=== PATIENT | female | born 1980 | race Caucasian/White ===

== ENCOUNTER 2024-07-29 05:55 | Day surgery (SDC) | payer MEDICAID, SELFPAY ==
--- NOTE | 2024-07-28 07:26 | EKG_ITS ---
[facility] Test Date: 2024-07-28 Pat Name: SAEID RIOS Department: Room: - Gender: Female Training And Development Officer: LINA : 1980 Requested By: Gokul Bright Order Number: [id number] Reading MD: Gokul Bright Measurements Intervals [place] Rate: 47 P: 53 MI: 174 QRS: 64 QRSD: 82 T: 51 QT: 416 QTc: 369 Interpretive Statements SINUS BRADYCARDIA No previous ECG available for comparison /store/S0/[id number]
[2024-07-28 07:37] VITALS: BMI 30.2
[2024-07-28 08:40] LABS: Basophils % (Auto) 1 % (0-2.5); Eosinophils # (Auto) 0.2 Thou/mm3 (0.0-0.5); Eosinophils % (Auto) 3 % (0-10); Hematocrit 36.1 % (36.0-46.0); Hemoglobin 12.4 g/dL (12.0-16.0); Immature Granulocytes % (Auto) 0 % (0-0); Immature Granulocytes Auto 0.02 Thou/mm3 (0.00-0.00); Lymphocytes # (Auto) 2.2 Thou/mm3 (1.0-4.8); Lymphocytes % (Auto) 37 % (10-50); Mean Corpuscular HGB Conc 34.3 g/dl (31.0-37.0); Mean Corpuscular Hemoglobin 28.6 pg (25.0-35.0); Mean Corpuscular Volume 83 fL (80-100); Monocytes # (Auto) 0.5 Thou/mm3 (0.0-0.8); Monocytes % (Auto) 9 % (0-12); Neutrophils % (Auto) 51 % (37-80); Nucleated Red Blood Cell % 0 /100 WBC (0); Platelet Count 207 Thou/mm3 (140-440); RDW Standard Deviation 37.7 fL (36.4-46.3); Red Blood Count 4.33 Miln/mm3 (4.00-5.20)
[2024-07-28 08:59] LABS: Partial Thromboplastin Time 24.6 Seconds (22.0-36.0); Prothrombin Time 10.6 Seconds (9.0-12.2)
[2024-07-28 09:28] LABS: Alanine Aminotransferase 22 U/L (10-49); Albumin, Serum 4.5 gm/dL (3.5-5.0); Albumin/Globulin Ratio 1.7 (1.2-2.2); Alkaline Phosphatase 56 U/L (46-116); Anion Gap 6 (7-16); Aspartate Amino Transferase 21 U/L (0-34); BUN/Creatinine Ratio 10 Ratio (12-20); Bilirubin,Total 0.3 mg/dL (0.3-1.2); Blood Urea Nitrogen 10 mg/dL (9-23); Calcium 9.5 mg/dL (8.3-10.6); Calcium (Corrected) 9.5 mg/dL (8.5-10.1); Carbon Dioxide 24.9 mMol/L (20.0-31.0); Chloride 107 mMol/L (98-107); Estimated Creatinine Clearance 76.1 mL/min (>60); Globulin 2.6 gm/dL (2.3-3.5); Glucose 108 mg/dL (74-106); Osmolality,Calculated 275 (275-295); Potassium 3.9 mMol/L (3.4-5.1); Sodium 138 mMol/L (136-145); Total Protein 7.1 gm/dL (5.7-8.2); eGFR > 60 See Note
--- NOTE | 2024-07-28 15:02 | SUR.PREOP ---
Pt notified to come in at 0600 tomorrow for surgery.
[2024-07-29] VITALS (8 sets, daily range): BP systolic 122–170; BP diastolic 69–103; PULSE 54–75; RESP 12–18; TEMP 36.1–36.8; O2SAT 94–98; BMI 29.5
--- NOTE | 2024-07-29 09:22 | SUR.PHASEI ---
0922: Pt. AAOx4, vitals stable, breathing unlabored, no complaint of pain or nausea, dressing to right shoulder CDI, no active bleed noted, pt. able to wiggle bilateral fingers, cap refill to bilateral fingers less than 3 seconds, report received from Julia MAST and Wa[employer] student RNA.
--- NOTE | 2024-07-29 09:25 | PD.SUROPNT ---
Date of Procedure 07/29/24 Pre Op Diagnosis 1. Right rotator cuff tear 2. Right shoulder impingement syndrome Post Op Diagnosis Same Procedure 1. Excision osteophyte lateral end of the clavicle 2 manipulation under anesthesia 3 repair of rotator cuff. 4 acromioplasty. Findings Refer dictation Procedure Description The patient was given general endotracheal anesthesia. Shoulder block was also given. Once satisfactory anesthesia was achieved patient was put in about 45?? sitting position with sandbag underneath the shoulder blade. The part was thoroughly prepped and draped. A skin incision was made at the AC joint extending proximally towards the neck for a half inches and distally towards the arm for about couple of inches. The incision was made over the previously placed scar. Deeper dissection was carried out. Bleeding vessels were electrocoagulated as and when encountered. The soft tissue was reflected. Following that lateral end of the clavicle was exposed. There was a lot of scar tissue and an inferior osteophytes were coming out from the lateral end of the clavicle. The deltoid muscle was reflected from the anterior and lateral aspect of the acromial process. Following that a periosteal elevator was placed underneath the lateral end of the clavicle and lateral 1 to 2 mm along with osteophyte was excised. On the anterior end of the acromial process on the lateral side there was osteophytes. Those osteophytes were removed with a saw and bone rongeur. Following that the rotator cuff was inspected. It revealed big oval tear, however most of the fibers were attached to the greater tuberosity. Wound was irrigated with antibiotic solution every 4-5 minutes. The left shoulder was manipulated at this time. The rotator cuff tear was repaired with 2-0 Vicryl. 2 drill holes were made on the acromial process and deltoid muscle was stitched back to it. Some reinforcement sutures were placed. The subcutaneous tissue was then closed with the help of 2-0 Vicryl and 3-0 Vicryl in layers. The skin was closed with ricki. After cleaning the wound with hydrogen proximal solution and sterile dressing was applied. Patient was taken to the recovery room in good condition. Estimated blood loss 20 mL. Prognosis in this case is fair. Due to significant eschar formation and rather poor quality of muscle patient may not have full range of motion and may continue having some degree of pain. Patient is fully aware of that Anesthesia GETA and other Pathology / specimen None Estimated Blood Loss 10 Surgeon Gokul Sanabria MD Surgical Staff Operation Date: 07/29/24 08:00 Case Staff Anesthesiologist: Gamal Hawthorne RN First Assistant: Izabela Willis
[2024-07-29] MEDS: fentaNYL CIT INJ 50 mCg/ML AMP 2ML 25 MCG IV ×2 (09:38→10:00)
[2024-07-29] MEDS: MORPHINE SULF INJ 10 MG/ML VIAL 3 MG IV ×2 (09:46→09:54)
--- NOTE | 2024-07-29 10:22 | SUR.PHASEII ---
1022: Pt. AAOx4, vitals stable, breathing unlabored, complaint of pain (pt. states it's tolerable, but still painful), gave plenty of pain medication that I could safely, advised pt. to take pain medication as soon as she gets home, wait an hour and half to two hours and if the pain pill doesn't help to call MD for stronger medications, Pt. verbalized understanding. Pt. tolerated sips of water well, dressing to right shoulder CDI, pt. able to wiggle bilateral fingers, cap refill to bilateral fingers lass than 3 seconds, bilateral radial pulses strong and regular. Gave discharge instructions to the pt. and her ride, both verbalized understanding and had no further questions. Pt. left with all personal belongings.
--- NOTE | 2024-07-29 10:25 | ESHP_ITS ---
RE: STEPHEN RIOS : 1980 DATE OF ADMISSION: 07/29/2024 The patient came to my office on 07/28/2024 for detailed preoperative history and physical examination. HISTORY OF PRESENTING COMPLAINT: The patient presented to me with history of pain in the right shoulder. Range of motion is severely restricted. The patient actually underwent David procedure along with her rotator cuff repair on 03/07/2022. The patient has stated that she was lifting 50 pounds of weight and she felt a snap in the right shoulder. Since that the patient started having this problem. As per the patient, she lifted weight in March of 2023 almost 1 year after the previous surgery. Intensity of pain is graded 8-9/10. The patient is unable to do household work. MRI scan confirmed torn rotator cuff. PAST MEDICAL HISTORY: The patient has history of high blood pressure. No history of diabetes mellitus, asthma, seizure, chest pain, myocardial infarction, or bleeding disorder. PAST SURGICAL HISTORY: Includes right rotator cuff surgery. DRUG HISTORY: The patient is on; 1. Propranolol. 2. Pregabalin. 3. Mirtazapine. 4. Hydroxyzine. 5. Gabapentin. 6. Hydrocodone. ALLERGIES: NIL KNOWN. FAMILY HISTORY AND SOCIAL HISTORY: Noncontributory in this case, though the patient used to take some street drugs in the past, but she quit a few years back. PHYSICAL EXAMINATION: VITAL SIGNS: Pulse 88 per minute, blood pressure 138/76. NECK: Soft, supple. No mass felt. Trachea is centrally placed. CARDIOVASCULAR: First and second heart sounds normal. No murmur heard. LUNGS: Bilateral vesicular breath sounds. CHEST: Clear. ABDOMEN: Soft, supple. No mass felt. Bowel sounds present. EXTREMITIES: Right shoulder examination, very well-healed scar. The scar size is about 3 inches. There is tenderness at remnant of the AC joint. Active range of motion 0-80 degrees of abduction and 0-70 degrees of forward flexion. Internal rotation is restricted. Detailed discussion took place. LABORATORY STUDIES: The patient MRI scan revealed torn rotator cuff, which was complete tear. There is some inflammation was present as well. ASSESSMENT AND PLAN: I explained that I can go ahead and re-repair the muscle, but with the quality of the muscle seems to be a rather poor. Besides that there may be scar formation at the lateral end of the clavicle, which I may have to be removed. Detailed discussion took place. With the help of shoulder model and shoulder reversal print inspector, it was explained. Risk with anesthesia was explained and that includes, but not limited to reaction to anesthetic agents, cardiac arrest and rarely it might be fatal. Risk with operation includes infection, and if that happens, the patient may need further surgical procedure. Other risks include delayed healing, wound dehiscence, etc. No guarantee is given regarding outcome of the procedure and/or relief of symptoms. Indeed due to poor quality of muscle, there is a possibility that the patient may not again have very good range of motion. Surgery is booked for 07/29/2024. Appropriate lab work done. DT: 09:35:52 TT: 10:23:00 Ref: [id number] - TID: [id number]
== END 2024-07-29 10:22 | disposition home or self-care (01) ==
PROVIDERS: Anesthesiology; PCP Physician Assistant; Referring Provider Orthopaedic Surgery; Visit Provider Orthopaedic Surgery
PROC: (CPT 23412; principal; 2024-07-29 08:00)
DX: M75.101 Unspecified rotator cuff tear or rupture of right shoulder, not specified as traumatic (principal); M75.41 Impingement syndrome of right shoulder; Z01.810 Encounter for preprocedural cardiovascular examination
CPT/HCPCS: 23412; 36415; 80053; 85025; 85610; 85730; 93005; A4649; J0131; J0690; J2250; J2270; J2371; J2704; J2795; J3010; J3490

== ENCOUNTER → 2024-09-05 | Outpatient (CLI) | payer MEDICAID, SELFPAY ==
--- NOTE | 2024-09-05 08:00 | XR_ITS ---
Examination: Screening digital mammography, bilateral Computer aided detection 3-D breast Tomosynthesis, bilateral Date and time of exam: September 05, 2024 0748 hours Compared to mammograms dating to July 23, 2021 Indication: Screening Technique: Nonmagnified MLO, CC views of the breasts to been obtained, reconstructed from 3-D Tomosynthesis images. R2 computer aided detection program utilized for evaluation of suspicious masses and/or abnormal calcifications. 3-D Tomosynthesis images obtained. Findings: Scattered areas of fibroglandular density. Skin lesions right breast Benign calcifications. No interval suspicious masses Impression: BI-RADS category II: Benign Findings. Recommend 1 year follow-up mammogram.
== END | disposition home or self-care (01) ==
LOC: CDIM 07:36
PROVIDERS: PCP Physician Assistant; Referring Provider Nurse Practitioner Family; Visit Provider Nurse Practitioner Family
DX: Z12.31 Encounter for screening mammogram for malignant neoplasm of breast (principal); R92.323 Mammographic fibroglandular density, bilateral breasts; R92.1 Mammographic calcification found on diagnostic imaging of breast
CPT/HCPCS: 77063; 77067

== ENCOUNTER 2024-09-06 10:09 | Outpatient (RCR) | payer MEDICAID, SELFPAY ==
--- NOTE | 2024-09-06 10:48 | PT.OIERPT ---
PT OP Initial Eval Patient Information Outpatient Physical Therapy Treatment Date: 09/06/24 Visit Reasons: Rotator cuff repair Medical Diagnosis: Right Rotator Cuff Tear Treatment Dx #1: Right Shoulder Mobility Deficits Treatment Dx #2: Right Shoulder Pain Start of Care: 09/06/24 Date of Onset: 07/29/24 Smoking Status Smoking Status: Never smoker Initial Assessment Subjective: Pt is a 44 y/o female s/p right rotator cuff repair 07/29/24. Pt mentioned same tendon was repair ~ 2 years ago. 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 Pt has limitation with self care, cooking, cleaning, work duties, lifting, and performing recreational activities. Objective: Right Shoulder PROM Flexion: 150 deg Abduction: 160 deg External Rotation: 45 deg Internal Rotation: unable due to pain Right Shoulder AROM Flexion: 30 deg Abduction: 45 deg ER and IR: unable Right Shoulder MMTs: grossly 3-/5 Right Scapula MMTs: grossly 3-/5 Assessment: Pt demonstrate right shoulder pain and mobility deficits s/p rotator cuff repair leading to difficulty with ADLs. Pt will benefit from physical theapy to increase ROM, strength, and work on stability. Short Term and Charge Manager Goals 1) Increase right shoulder PROM WFL in 12 wks to prevent frozen shoulder 2) Increase right shoulder MMTs grossly 4/5 in 12 wks to be able to perform lifting activities 3) Increase right scapula MMTs grossly to 4-/5 in 12 wks to be able to perform chores 4) Decrease shoulder pain to 2/10 in 12 wks to be able to perform recreational activities 5) Indep with HEP Treatment Plan 1) Manual Therapy 2) Therapeutic Activities 3) Therapeutic Exercises 4) Modalities (ice, heat) Frequency and Duration: 2 x wk for 12 wks Certification Dates: 09/06/24 to 12/05/24 Procedure Charges OP PT Eval Mod Complex 30 minutes: Yes
== END 2024-09-06 23:59 | disposition home or self-care (01) ==
LOC: CPTX 10:09
PROVIDERS: PCP Orthopaedic Surgery; Referring Provider Orthopaedic Surgery; Visit Provider Orthopaedic Surgery
DX: M25.511 Pain in right shoulder (principal); Z98.890 Other specified postprocedural states
CPT/HCPCS: 97162

== ENCOUNTER 2024-10-07 11:00 | Outpatient (RCR) | payer MEDICAID, SELFPAY ==
--- NOTE | 2024-09-12 08:52 | PT.ODAYNRPT ---
PT Outpatient Daily Note OP Daily Note Outpatient Physical Therapy Treatment Date: 09/12/24 Visit Reasons: Rotator cuff repair Subjective: Pt's shoulder is sore and aches. Objective: Please see flow chart for list of ther ex performed Assessment: encouraged to complete reps today due to pain. Post ice helped with pain and soreness Plan: Continue with PT Length of Time (minutes) of Treatment: 30 Minutes Procedure Charges Therapeutic Exercise 30 minutes: Yes
--- NOTE | 2024-09-15 09:08 | PT.ODAYNRPT ---
PT Outpatient Daily Note OP Daily Note Outpatient Physical Therapy Treatment Date: 09/15/24 Visit Reasons: Rotator cuff repair Subjective: Pt reports shoulder is doing ok, no other complaints or concerns to report. Objective: Please see flow sheet for ther ex list. Assessment: Pt instructed on AAROM exercises, pt encouraged to perform within pain free range. Plan: Continue with POC. Length of Time (minutes) of Treatment: 30 Minutes Procedure Charges Therapeutic Exercise 30 minutes: Yes
--- NOTE | 2024-09-19 09:59 | PT.ODAYNRPT ---
PT Outpatient Daily Note OP Daily Note Outpatient Physical Therapy Treatment Date: 09/19/24 Visit Reasons: Rotator cuff repair Subjective: Pt continues to have limitation with moving arm past shoulder height Objective: Please see flow chart for list of ther ex performed Assessment: patient exhibit post capsule tightness leading to slow progress with shoulder AROM. Pt instructed on post capsule stretch and to resume at home. Plan: Continue with PT Length of Time (minutes) of Treatment: 30 Minutes Procedure Charges Therapeutic Exercise 30 minutes: Yes
--- NOTE | 2024-09-23 13:27 | PT.ODAYNRPT ---
PT Outpatient Daily Note OP Daily Note Outpatient Physical Therapy Treatment Date: 09/23/24 Visit Reasons: Rotator cuff repair Subjective: Pt's shoulder feels about the same. Notice a little improvement. Objective: Please see flow chart for list of ther ex performed Assessment: small improvement with shoulder flexion and scaption AAROM noted. Cues to decrease upper trape recruitment with shoulder exercises Plan: Continue with PT Length of Time (minutes) of Treatment: 30 Minutes Procedure Charges Therapeutic Exercise 30 minutes: Yes
--- NOTE | 2024-09-27 11:22 | PT.ODAYNRPT ---
PT Outpatient Daily Note OP Daily Note Outpatient Physical Therapy Treatment Date: 09/27/24 Visit Reasons: Rotator cuff repair Subjective: Pt reports shoulder progress is slow, still having difficulty reaching over head. Objective: Please see flow sheet for ther ex list. Assessment: Pt demonstrates poor cuff firing, demonstrates upper trap recruitment when reaching overhead ~90 deg. Plan: Continue with POC. Length of Time (minutes) of Treatment: 30 Minutes Procedure Charges Therapeutic Exercise 30 minutes: Yes
--- NOTE | 2024-09-30 10:53 | PT.ODAYNRPT ---
PT Outpatient Daily Note OP Daily Note Outpatient Physical Therapy Treatment Date: 09/30/24 Visit Reasons: Rotator cuff repair Subjective: Pt recently seen surgeon and wants to do a manipulation in November if shes unale to move the arm past shoulder height. Objective: Please see flow chart for list of ther ex performed Assessment: continues to improve with shoulder AAROM flexion and scaption, however, no change with shoulder AROM flexion and scaption with noted excessive upper trape recruitment due to rotator cuff weakness Plan: Continue with PT Length of Time (minutes) of Treatment: 30 Minutes Procedure Charges Therapeutic Exercise 30 minutes: Yes
--- NOTE | 2024-10-07 11:28 | PT.ODAYNRPT ---
PT Outpatient Daily Note OP Daily Note Outpatient Physical Therapy Treatment Date: 10/07/24 Visit Reasons: Rotator cuff repair Subjective: Pt's shoulder continues to hurt and is unable to reach outward or in front of her. Pt wants to follow up with surgeon soon. Objective: Please see flow chart for list of ther ex performed Assessment: difficulty progressing forward flexion and punch exercises due to pain. Pt encouraged to work up to the pain. Pt able to complete instructed reps, however, minimal changes with ROM noted post exercises Plan: Continue with PT Length of Time (minutes) of Treatment: 30 Minutes Procedure Charges Therapeutic Exercise 30 minutes: Yes
== END 2024-10-07 23:59 | disposition home or self-care (01) ==
LOC: CPTX 11:00
PROVIDERS: PCP Orthopaedic Surgery; Referring Provider Orthopaedic Surgery; Visit Provider Orthopaedic Surgery
DX: M25.511 Pain in right shoulder (principal); S46.011D Strain of muscle(s) and tendon(s) of the rotator cuff of right shoulder, subsequent encounter; X50.9XXD Other and unspecified overexertion or strenuous movements or postures, subsequent encounter
CPT/HCPCS: 97110

== ENCOUNTER → 2024-10-07 | Outpatient (CLI) | payer MEDICAID, SELFPAY ==
--- NOTE | 2024-10-07 14:20 | XR_ITS ---
Examination: Knee bilateral, 5 views Technique: Knee AP, lateral, each knee, bilateral axial knees total 5 views Date and time of exam: October 07, 2024 1453 hours INDICATIONS: Bilateral knee pain 4 months FINDINGS: Mild osteopenia Mild narrowing medial joint spaces bilaterally No fracture or dislocation involving either knee IMPRESSION: Mild narrowing medial joint spaces bilaterally
--- NOTE | 2024-10-07 16:00 | XR_ITS ---
Examination: Transvaginal ultrasound of the pelvis, complete Technique: Transvaginal sonographic images pelvis performed using richards scale imaging Exam date and time: October 07, 2024 1426 hours INDICATIONS: Diagnosis malignant neoplasm uterus, urinary incontinence 4 months FINDINGS: Absent uterus Ovaries obscured by bowel gas No free fluid in the pelvis No pelvic mass IMPRESSION: No pelvic mass depicted.
== END | disposition home or self-care (01) ==
PROVIDERS: PCP Physician Assistant; Referring Provider Physician Assistant; Visit Provider Physician Assistant
DX: M25.862 Other specified joint disorders, left knee (principal); M25.861 Other specified joint disorders, right knee; Z85.42 Personal history of malignant neoplasm of other parts of uterus
CPT/HCPCS: 73562; 76830

== ENCOUNTER 2024-10-18 10:30 | Outpatient (RCR) | payer MEDICAID, SELFPAY ==
--- NOTE | 2024-10-12 13:15 | PT.ODAYNRPT ---
PT Outpatient Daily Note OP Daily Note Outpatient Physical Therapy Treatment Date: 10/12/24 Visit Reasons: Rotator cuff repair Subjective: Pt mentioned that she continues to have difficulty reaching over head. Objective: Please see flow sheet for ther ex list. Assessment: Pt AROM continues to be limited to ~90 deg of flexion, pt can reach ~140 deg of flexion during PROM. Plan: Continue with POC. Length of Time (minutes) of Treatment: 30 Minutes Procedure Charges Therapeutic Exercise 30 minutes: Yes
--- NOTE | 2024-10-14 12:07 | PT.ODS1RPT ---
PT OP Progress/Discharge Note Date of Service: 10/14/24 Progress Note/DC Note Progress Note/Discharge Note: Progress Note Patient Information Visit Reasons: Rotator cuff repair Medical Diagnosis: Right Rotator Cuff Tear Treatment Dx #1: Right Shoulder Mobility Deficits Service Continue Service or Discharge: Continue Service Certification Date Certification Dates: 10/14/24 to 01/11/25 Status Subjective: Pt's shoulder feels about the same. Pt mentioned she has difficulty with lifting, overhead motions, and performing self care. Pt can move the arm up higher with assistance. Objective: Right Shoulder PROM: all motions are WFL Right Shoulder AROM Flexion: 90 deg Abduction: 75 deg ER and IR: unable Right Shoulder MMTs: grossly 3/5 Right Scapula MMTs: grossly 3/5 Assessment: Pt is progressing with shoulder AROM, however, unable to perform arm movement past shoulder height due to rotator cuff weakness leading to difficulty with ADLs. Pt has not met set goals and will continue to benefit from physical therapy; thank you for your referrals. Plan: Continue with PT/POC and add 8 sessions (2 x wk for 4 wks) Procedure Charges Therapeutic Exercise 30 minutes: Yes
--- NOTE | 2024-10-18 10:57 | PT.ODAYNRPT ---
PT Outpatient Daily Note OP Daily Note Outpatient Physical Therapy Treatment Date: 10/18/24 Visit Reasons: Rotator cuff repair Subjective: Pt's shoulder feels about the same. Pt still has trouble with arm movement beyond shoulder height. Objective: Please see flow chart for list of ther ex performed Assessment: decrease pain with punches in supine. Pt able to reach up higher with less pain Plan: Continue with PT Length of Time (minutes) of Treatment: 30 Minutes Procedure Charges Therapeutic Exercise 30 minutes: Yes
== END 2024-11-04 23:59 | disposition home or self-care (01) ==
LOC: CPTX 10:30
PROVIDERS: PCP Orthopaedic Surgery; Referring Provider Orthopaedic Surgery; Visit Provider Orthopaedic Surgery
DX: M25.511 Pain in right shoulder (principal); Z98.890 Other specified postprocedural states
CPT/HCPCS: 97110

== ENCOUNTER 2024-11-08 10:44 | Outpatient (RCR) | payer MEDICAID, SELFPAY ==
--- NOTE | 2024-11-08 11:56 | PT.ODAYNRPT ---
PT Outpatient Daily Note OP Daily Note Outpatient Physical Therapy Treatment Date: 11/08/24 Visit Reasons: ROTATOR CUFF REPAIR Subjective: Pt's shoulder feels much better. Pt mentioned she hasn't seen surgeon due to out of office. Pt wants to continue physical therapy. Objective: Please see flow chart for list of ther ex performed Assessment: improving shoulder AAROM in flexion and abduction with less pain reported. Pt still unable to move arm past shoulder height without recruitment of upper trape Plan: Continue with PT Length of Time (minutes) of Treatment: 30 Minutes Procedure Charges Therapeutic Exercise 30 minutes: Yes
== END 2024-12-05 23:59 | disposition home or self-care (01) ==
LOC: CPTX 10:44
PROVIDERS: PCP Orthopaedic Surgery; Referring Provider Orthopaedic Surgery; Visit Provider Orthopaedic Surgery
DX: M25.511 Pain in right shoulder (principal); S46.011D Strain of muscle(s) and tendon(s) of the rotator cuff of right shoulder, subsequent encounter; X58.XXXD Exposure to other specified factors, subsequent encounter
CPT/HCPCS: 97110

== ENCOUNTER 2025-01-25 13:10 | Emergency (ER) | payer MEDICAID, SELFPAY ==
[2025-01-25 13:15] VITALS: BP 120/83; PULSE 112; RESP 18; TEMP 37.3; O2SAT 95; BMI 26.8
--- NOTE | 2025-01-25 13:18 | XR_ITS ---
Examination: CT abdomen and pelvis without contrast. Coronal 3-D reconstructions. Sagittal 2-D reconstructions. Date and time of exam:January 25, 2025 1436 hours INDICATIONS: Bilateral flank pain and dysuria today CTDI: vol (mGy): 8.29 DLP: (mGycm): 463 Technique: Axial images of the abdomen have been obtained, 3 mm slice thickness Intravenous contrast material has not been administered. Low dose protocols were performed. One or more of the following dose reduction techniques were used; automated exposure control, adjustment of the mA and/or KV according to patient size, use of iterative reconstruction technique. Findings: Bibasilar pneumonia. Fatty infiltration throughout the liver no focal liver or splenic lesions No gallstones No pancreatic or adrenal mass No renal or ureteral calculi, no hydronephrosis Aorta normal size No pericecal inflammatory change No diverticulitis No bladder mass or bladder calculi No pelvic mass IMPRESSION: No renal or ureteral calculi, no hydronephrosis Negative for cystitis
--- NOTE | 2025-01-25 13:19 | PD.EDRME ---
Rapid Medical Screening Exam E Arrival date/time: 01/25/25 13:10 44-year-old female presents emergency department for complaints of bilateral flank pain and dysuria Chief Complaint: Urogenital-Female Vital signs: Vital Signs Temperature 99.1 F 01/25/25 13:15 Pulse Rate 112 H 01/25/25 13:15 Respiratory Rate 18 01/25/25 13:15 Blood Pressure 120/83 01/25/25 13:15 Pulse Oximetry (%) 95 01/25/25 13:15 Oxygen Delivery Method Room Air 01/25/25 13:15
[2025-01-25 13:42] LABS: Basophils % (Auto) 0 % (0-2.5); Eosinophils # (Auto) 0.2 Thou/mm3 (0.0-0.5); Eosinophils % (Auto) 1 % (0-10); Hematocrit 36.1 % (36.0-46.0); Hemoglobin 12.6 g/dL (12.0-16.0); Immature Granulocytes % (Auto) 0 % (0-0); Immature Granulocytes Auto 0.04 Thou/mm3 (0.00-0.00); Lymphocytes # (Auto) 1.6 Thou/mm3 (1.0-4.8); Lymphocytes % (Auto) 11 % (10-50); Mean Corpuscular HGB Conc 34.9 g/dl (31.0-37.0); Mean Corpuscular Hemoglobin 28.9 pg (25.0-35.0); Mean Corpuscular Volume 83 fL (80-100); Monocytes # (Auto) 0.8 Thou/mm3 (0.0-0.8); Monocytes % (Auto) 6 % (0-12); Neutrophils # (Auto) 11.6 Thou/mm3 (1.8-7.7); Neutrophils % (Auto) 81 % (37-80); Nucleated Red Blood Cell % 0 /100 WBC (0); Platelet Count 180 Thou/mm3 (140-440); RDW Standard Deviation 41.3 fL (36.4-46.3); Red Blood Count 4.36 Miln/mm3 (4.00-5.20); White Blood Count 14.3 Thou/mm3 (3.6-11.0)
[2025-01-25 14:02] LABS: Alanine Aminotransferase 19 U/L (10-49); Albumin, Serum 4.7 gm/dL (3.5-5.0); Albumin/Globulin Ratio 1.7 (1.2-2.2); Alkaline Phosphatase 82 U/L (46-116); Anion Gap 9 (7-16); Aspartate Amino Transferase 25 U/L (0-34); BUN/Creatinine Ratio 11 Ratio (12-20); Bilirubin,Total 0.7 mg/dL (0.3-1.2); Blood Urea Nitrogen 10 mg/dL (9-23); Calcium 9.3 mg/dL (8.3-10.6); Calcium (Corrected) 9.3 mg/dL (8.5-10.1); Carbon Dioxide 26.7 mMol/L (20.0-31.0); Chloride 101 mMol/L (98-107); Creatinine (Component) 0.9 mg/dL (0.6-1.3); Globulin 2.8 gm/dL (2.3-3.5); Glucose 109 mg/dL (74-106); Lipase 42 U/L (12-53); Osmolality,Calculated 273 (275-295); Potassium 4.2 mMol/L (3.4-5.1); Sodium 137 mMol/L (136-145); Total Protein 7.5 gm/dL (5.7-8.2); eGFR > 60 See Note
[2025-01-25 14:25] LABS: Collection Type, Urine Clean Catch
[2025-01-25 14:30] LABS: HCG Qualitative,Urine Negative
[2025-01-25 14:32] LABS: Bilirubin,Urine Negative (Negative); Blood,Urine Trace (Negative); Clarity,Urine Clear (Clear/Hazy); Color,Urine Yellow (Lt Yel-Yel); Culture Indicated,Urine Not Indicated; Glucose, Urine Negative (Negative); Ketones,Urine Negative (Negative); Leukocyte Esterase,Urine Positive (Negative); Nitrite,Urine Negative (Negative); Protein,Urine Trace (Neg - Trace); RBC,Urine 3 /hpf (0-3); Specific Gravity,Urine 1.023 (1.001-1.035); Squamous Epithelial Cell,Urine 2 /hpf (0-5); Urobilinogen,Urine Negative mg/dL (0.0-1.0); WBC,Urine 10 /hpf (0-5)
--- NOTE | 2025-01-25 15:18 | PD.EDFMALE ---
ED Female Urogenital RME/HPI General Chief complaint: Urogenital-Female Stated complaint: BILATERAL KIDNEY PAIN WITH FEVER X YESTERDAY Time Seen by Provider: 01/25/25 15:15 Arrival date/time: 01/25/25 13:10 44-year-old female presents emergency department for complaints of bilateral flank pain and dysuria Limitations: no limitations RME / HPI RME / HPI Narrative: 01/25/25 13:10 44-year-old female presents emergency department for complaints of bilateral flank pain and dysuria Related Data Home Medications ?Medication ?Instructions ?Recorded ?Confirmed zolpidem 10 mg tablet (Ambien) 10 mg PO QPM 08/21/03/06/22 buprenorphine 7.5 mcg/hour weekly 1 patch topical QWEEK 03/06/22 03/06/22 transdermal patch (Butrans) omeprazole 20 mg tablet,delayed 1 tab PO QDAY 03/06/22 03/06/22 release ondansetron 4 mg disintegrating 1 tab PO TID 03/06/22 03/06/22 tablet famotidine 20 mg tablet 20 mg PO QDAY 07/28/24 07/28/24 fluoxetine 40 mg capsule 40 mg PO QDAY 07/28/24 07/28/24 hydroxyzine HCl 50 mg tablet 50 mg PO DAILY 07/28/24 07/28/24 mirtazapine 7.5 mg tablet 7.5 mg PO QDAY 07/28/24 07/28/24 olanzapine 5 mg disintegrating 5 mg PO QDAY 07/28/24 07/28/24 tablet prazosin 2 mg capsule 2 mg PO BID 07/28/24 07/28/24 pregabalin 50 mg capsule (Lyrica) 50 mg PO BID 07/28/24 07/28/24 propranolol 20 mg tablet 20 mg PO DAILY 07/28/24 07/28/24 Previous Rx's ?Medication ?Instructions ?Recorded hydrocodone 5 mg-acetaminophen 325 1 tab PO BID PRN pain #10 tabs 07/08/21 mg tablet fgexojsibnodknh-cgsywslacitshqd-EC 5 ml PO Q4H PRN cough/congestion 08/23/22 2 mg-30 mg-10 mg/5 mL oral syrup #180 mL (Bromfed DM) acetaminophen 500 mg tablet 1,000 mg (2 x 500 mg) PO Q6H PRN 10/30/22 (Tylenol Extra Strength) fever or pain #30 tabs ciprofloxacin HCl 500 mg tablet 500 mg PO BID 7 days #14 tabs 01/25/25 ibuprofen 800 mg tablet 800 mg PO TID PRN pain #30 tabs 01/25/25 Allergies Allergy/AdvReac Type Severity Reaction Status Date / Time No Known Allergies Allergy Verified 01/25/25 13:13 Review of Systems Review of Systems Systems Reviewed: All systems reviewed, normal except as documented Constitutional Constitutional: Reports system reviewed and no additional complaints, except as documented, Denies fever(s) and Denies headache(s) Eyes Eyes: Reports system reviewed and no additional complaints, except as documented and Denies blurry vision ENT Ears, Nose, Mouth, and Throat: Reports system reviewed and no additional complaints, except as documented, Denies headache(s), Denies nasal congestion and Denies nasal discharge Cardiovascular Cardiovascular: Reports system reviewed and no additional complaints, except as documented, Denies chest pain and Denies dyspnea Respiratory Respiratory: Reports system reviewed and no additional complaints, except as documented, Denies chest congestion, Denies cough and Denies dyspnea Gastrointestinal Gastrointestinal: Reports system reviewed and no additional complaints, except as documented, Reports abdominal pain and Reports other (Flank pain) Genitourinary Genitourinary: Reports system reviewed and no additional complaints, except as documented, Reports dysuria and Denies flank pain Integumentary/Breasts Skin/Breast: Reports system reviewed and no additional complaints, except as documented and Denies rash Neurologic Neurologic: Reports system reviewed and no additional complaints, except as documented, Reports as per HPI and Denies headache(s) Past Medical History Past Medical History NEUROLOGIC: Negative Neurological Disorders or Seizures CARDIAC: Negative Cardiac Disorders or Congestive Heart Failure RESPIRATORY: Negative Chronic Obstructive Pulmonary Disease (COPD), Asthma, Pneumonia or Sleep Apnea GASTROINTESTINAL: Positive Hepatitis (C was treated) and Gastroesophageal Reflux Disease; Negative Gastrointestinal Disorders GENITOURINARY: Negative Genitourinary Disorders, Renal Disease or Kidney Stones REPRODUCTIVE: Positive Endometriosis and Previous Pregnancies (4) MUSCULOSKELETAL: Positive Musculoskeletal Disorders, Arthritis and Degenerative Disk Disease (sees pain specialist) ENDOCRINE: Negative Endocrine Disorders, Diabetes Mellitus Type 1 or Diabetes Mellitus Type 2 HEMATOLOGIC: Negative Blood Disorders or Anemia PSYCHO/SOCIAL: Positive Recreational Drug Use (IV DRUG USER), Depression, Anxiety and Post Traumatic Stress Disorder OTHER HISTORY: Positive Blood Transfusions and Chicken Pox; Negative Hospitalization, Autoimmune Disease, Shingles, Blood Transfusion Reaction, Anesthesia Reactions, MRSA or Cancer Family History FAMILY HISTORY: Positive Family Cardiac Disorders, Family Cancer and Family Surgery; Negative Family Psychiatric Problems, Family Respiratory Disorders, Family Gastrointestinal Problems or Family Anesthesia Reaction Surgical History SURGICAL: Positive Hysterectomy and Section (x2); Negative Endocrine Surgery or Ear Surgery Social History SMOKING STATUS: Never smoker SUBSTANCE USE: does not use ED Exam General Limitations: Present no limitations General appearance: Present alert and in no apparent distress Head Head exam: Present atraumatic Eye Eye exam: Present normal appearance, PERRL and EOMI ENT ENT exam: Present normal exam, normal oropharynx and mucous membranes moist Neck Neck exam: Present normal inspection, full ROM and trachea midline Chest Chest inspection: Present normal inspection and symmetric chest wall rise Respiratory Respiratory exam: Present normal lung sounds bilaterally Cardiovascular Cardiovascular exam: Present regular rate, normal rhythm and normal heart sounds Abdominal Exam Abdominal exam: Present soft and normal bowel sounds; Absent distention, tenderness, guarding, rebound or rigidity Extremities Exam Extremities exam: Present normal inspection and full ROM Back Exam Back exam: Present normal inspection and full ROM Neurological Exam Neurological exam: Present alert, oriented X3 and CN II-XII intact Psychiatric Psychiatric exam: Present normal affect and normal mood Skin Skin exam: Present warm, dry, intact and normal color Course Quality Measures none Orders Category Date Time Status CT abdomen pelvis wo con Stat Exams 01/25/25 13:18 Completed CBC Stat Lab 01/25/25 13:26 Completed Comprehensive Metabolic Panel Stat Lab 01/25/25 13:26 Completed HCG Qualitative,Urine Stat Lab 01/25/25 14:03 Completed Lipase Stat Lab 01/25/25 13:26 Completed UA, C/S IF [Urinalysis, C/S if Indicated] Stat Lab 01/25/25 14:03 Completed Lidocaine 1% 20 ml [Xylocaine 1% 20 ML] Med 01/25/25 15:19 Discontinued 2.1 ml INFL X1 ONE cefTRIAXone [Rocephin] Med 01/25/25 15:19 Discontinued 1,000 mg IM X1 ONE Vital Signs Vital signs: Vital Signs Temperature 99.1 F 01/25/25 13:15 Pulse Rate 112 H 01/25/25 13:15 Respiratory Rate 18 01/25/25 13:15 Blood Pressure 120/83 01/25/25 13:15 Pulse Oximetry (%) 95 01/25/25 13:15 Oxygen Delivery Method Room Air 01/25/25 13:15 O2 saturation 95% on room air within normal limits Urogenital - Female MDM Narrative MDM Narrative:: 44-year-old female presents emergency department for complaints of bilateral flank pain and dysuria On exam patient well-appearing patient does not appear ill or toxic in no acute distress Lab work and imaging obtained no acute emergent findings noted Urinalysis is consistent with UTI patient was given Rocephin here in the emergency department Patient discharged home in no distress to follow-up with primary care doctor in the next 24 to 48 hours and for any worsening symptoms to return to the ER immediately Patient data External records reviewed:: [facility] previous records Clinical information provided by:: patient Social determinants that could affect healthcare access:: none Patient has the following chronic illnesses:: See history How is presenting disease/condition affected by chronic disease/condition?: uneffected by Evaluation data The following diagnostics were reviewed and interpreted by me:: lab results and radiology exam(s) Lab and/or radiology exams considered but not ordered:: Labs radiology obtained Interpretation Summary: Reviewed by me Medications / Prescriptions Medications or Prescriptions considered but not ordered:: Given Medication administrations:: Medication Administration History Discontinued Medications Ceftriaxone Sodium (Ceftriaxone Sod Inj 1,000 Mg Vial) 1,000 mg IM X1 ONE Stop: 01/25/25 15:20 Lidocaine HCl (Lidocaine Hcl 1% 20 Ml Vial) 2.1 ml INFL X1 ONE Stop: 01/25/25 15:20 Given Consultations Consultation(s) initiated? (list below): No Diagnosis Urogenital Female Differential Diagnosis: urinary tract infection, bacterial vaginosis and cystitis Most likely diagnosis given after review of the tests above:: UTI Admission Indicated Admission indicated?: not indicated Admission Request Was there a request for admission?: No Disposition Plan Disposition Plan: Discharge Discharge Attestation Discharge Attestation: The patient and all family members were given an opportunity to ask questions and understood the discharge instructions. Discharge instructions specifically effects, indications for sooner follow up or return to the emergency department, and the expected course of current diagnosis. Patient condition: Stable Discharge Plan Plan Patient Disposition: HOME (Self Care) Discharge Disposition comment: Stable Prescriptions/Referrals Prescriptions/Med Rec: New ibuprofen 800 mg tablet 800 mg PO TID PRN (Reason: pain) Qty: 30 0RF ciprofloxacin HCl 500 mg tablet 500 mg PO BID 7 Days Qty: 14 0RF No Action zolpidem [Ambien] 10 mg Tablet 10 mg PO QPM hydrocodone-acetaminophen 5-325 mg tablet 1 tab PO BID MDD 10 PRN (Reason: pain) Qty: 10 0RF ondansetron 4 mg tablet,disintegrating 1 tab PO TID Patient Comments: dissolve 1 tablet ON TONGUE three times a day if needed omeprazole 20 mg tablet,delayed release (DR/EC) 1 tab PO QDAY Patient Comments: take 1 tablet by mouth at bedtime buprenorphine [Butrans] 7.5 mcg/hour patch weekly 1 patch TOPICAL QWEEK Patient Comments: apply 1 patch TRANSDERMALLY EVERY 7 DAYS drtrdpaoremsaks-jfigwquwe-ON [Bromfed DM] 2-30-10 mg/5 mL syrup 5 ml PO Q4H PRN (Reason: cough/congestion) Qty: 180 0RF acetaminophen [Tylenol Extra Strength] 500 mg tablet 1,000 mg PO Q6H PRN (Reason: fever or pain) Qty: 30 0RF fluoxetine 40 mg Capsule 40 mg PO QDAY hydroxyzine HCl 50 mg Tablet 50 mg PO DAILY famotidine 20 mg Tablet 20 mg PO QDAY propranolol 20 mg Tablet 20 mg PO DAILY prazosin 2 mg Capsule 2 mg PO BID olanzapine 5 mg Tablet,Disintegrating 5 mg PO QDAY mirtazapine 7.5 mg Tablet 7.5 mg PO QDAY pregabalin [Lyrica] 50 mg Capsule 50 mg PO BID Referrals: Beth Washington PA-C [Primary Care Provider] - In 1 week Problem List Clinical Impression: Urinary tract infection Patient/Caregiver Discharge Instructions Education Materials: Understanding Urinary Tract ... Additional Instructions: Please follow up with your primary care doctor in the next 24-48hrs for any worsening symptoms return here immediately Print Language: Swedish Stand Alone Forms: Holli Award Info., Work/School Release, Patient Portal Info Letter PA/REYNALDO Supervising Physician PA/REYNALDO Supervising Physician: Dr loya
[2025-01-25] MEDS: cefTRIAXone SOD INJ 1,000 MG VIAL 1000 MG IM (15:35)
[2025-01-25] MEDS: LIDOCAINE HCL 1% 20 ML VIAL 2.1 ML INFL (15:35)
== END 2025-01-25 15:52 | disposition home or self-care (01) ==
PROVIDERS: Nurse Practitioner Primary Care; Emergency Provider Emergency Medicine; PCP Physician Assistant
DX: N39.0 Urinary tract infection, site not specified (principal)
CPT/HCPCS: 36415; 74176; 80053; 81001; 81025; 83690; 85025; 96372; 99284; J0696; J3490

== ENCOUNTER 2025-02-03 22:02 | Emergency (ER) | payer MEDICAID, SELFPAY ==
[2025-02-03 22:05] VITALS: BMI 26.8
[2025-02-03 22:06] VITALS: BP 143/90; PULSE 63; RESP 19; TEMP 37; O2SAT 98
--- NOTE | 2025-02-03 22:19 | XR_ITS ---
EXAMINATION: Ankle, right 3 views . Technique: Ankle AP, oblique, lateral 3 views Date and time of exam: February 03, 2025 10:46 PM INDICATIONS: Patient fell today with injury to the ankle, ankle pain FINDINGS: Lateral malleolar soft tissue swelling No acute fracture IMPRESSION: No acute fracture
--- NOTE | 2025-02-03 22:20 | EDNOTE_ITS ---
Lower Extremity Injury RME/HPI General Chief Complaint: Extremity Injury, Lower Stated Complaint: RIGHT ANKLE DEFORMITY Time Seen by Provider: 02/03/25 22:19 Arrival date/time: 02/03/25 22:02 RME / HPI RME / HPI Narrative: 44-year-old female patient came in for evaluation regarding right ankle swelling. Onset of symptoms about few minutes prior to ER visit patient was jumping and accidentally twisted her right ankle resulting into swelling, more on the lateral aspect. Patient is unable to ambulate due to pain. Denies any other injury. No medications taken prior to arrival. Related Data Home Medications ?Medication ?Instructions ?Recorded ?Confirmed zolpidem 10 mg tablet (Ambien) 10 mg PO QPM 08/21/19 0 03/06/22 buprenorphine 7.5 mcg/hour weekly 1 patch topical QWEE K 03/06/22 03/06/22 transdermal patch (Butrans) omeprazole 20 mg tablet,delayed 1 tab PO QDAY 03/06/22 03/06/22 release ondansetron 4 mg disintegrating 1 tab PO TID 03/06/22 03/06/22 tablet famotidine 20 mg tablet 20 mg PO QDAY 07/28/2407/28 fluoxetine 40 mg capsule 40 mg PO QDAY 07/28/2407/28 hydroxyzine HCl 50 mg tablet 50 mg PO DAILY 07/28/24 1 09/27/23 mirtazapine 7.5 mg tablet 7.5 mg PO QDAY 07/28/2407/09 olanzapine 5 mg disintegrating 5 mg PO QDAY 07/28/24 1 09/27/23 tablet prazosin 2 mg capsule 2 mg PO BID 07/28/24 4 pregabalin 50 mg capsule (Lyrica) 50 mg PO BID 4 07/28/24 propranolol 20 mg tablet 20 mg PO DAILY 07/28/2407/09 Previous Rx's ?Medication ?Instructions ?Recorded hydrocodone 5 mg-acetaminophen 325 1 tab PO BID PRN pa in #10 tabs 07/08/21 mg tablet cjsevmlrlcgtsyh-kqfhlmbuxlsfbmu-GE 5 ml PO Q4H PRN cou gh/congestion 08/23/22 2 mg-30 mg-10 mg/5 mL oral syrup #180 mL (Bromfed DM) acetaminophen 500 mg tablet 1,000 mg (2 x 500 mg) PO Q 6H PRN 10/30/22 (Tylenol Extra Strength) fever or pain #30 tabs ibuprofen 800 mg tablet 800 mg PO TID PRN pain #30 t abs 01/25/25 ibuprofen 800 mg tablet 800 mg PO Q8H PRN pain #30 t abs 02/03/25 Allergies Allergy/AdvReac Type Severity Reaction Status Date / Time No Known Allergies Allergy Verified 01/25/25 13:13 Review of Systems Review of Systems Narrative Review of Systems: Review of system reviewed and within normal limits except mentioned in HPI ED Exam Narrative Physical exam: VITAL SIGNS: Reviewed. GENERAL APPEARANCE: Alert and interactive, follows commands, no acute distress, HEAD AND FACE: Non-traumatic. ENT: PERRL, pink conjunctivitis, eyelid no trauma, Mucous membrane moist. NECK: Supple, nontender, no nuchal rigidity. CHEST: No tenderness, no crepitus, no paradoxical movement, no retractions. LUNGS: Clear, well ventilated, symmetric, no rales, no wheezing, no ronchi, no stridor, good breath sounds bilaterally. HEART: Regular rate, regular rhythm, no murmur, no gallops. ABDOMEN: Soft, positive bowel sounds, nondistended, no guarding, nontender, no rebound, no masses, RECTAL: Deferred. GENITAL: Deferred. NEUROLOGICAL: Gross motor function intact sensory function intact, Appropriate for age. MUSCULOSKELETAL: low back nontender, full range of motion. EXTREMITIES: Right ankle swelling, more on the lateral aspect, full range of motion. SKIN: Color pink, dry, no rash, no lacerations, no abrasions, no contusions. LYMPHATICS: Deferred. Course Quality Measures none Orders Category Date Time Status Crutches .NOW Care 02/03/25 23:11 Active XR ankle comp RT min 3V Stat Exams 02/03/25 22:19 Taken Ketorolac Inj [Toradol Inj] Med 02/03/25 23:12 Discontinued 30 mg IM X1 ONE Vital Signs Vital signs: Vital Signs Temperature 98.6 F 02/03/25 22:06 Pulse Rate 63 02/03/25 22:06 Respiratory Rate 19 02/03/25 22:06 Blood Pressure 143/90 H 02/03/25 22:06 Pulse Oximetry (%) 98 02/03/25 22:06 Oxygen Delivery Method Room Air 02/03/25 22:06 Extremity Injury, Lower MDM Narrative MDM Narrative:: 44-year-old female patient came in for evaluation regarding right ankle swelling. Onset of symptoms about few minutes prior to ER visit patient was jumping and accidentally twisted her right ankle resulting into swelling, more on the lateral aspect. Patient is unable to ambulate due to pain. Denies any other injury. No medications taken prior to arrival. X-ray of the right ankle came back unremarkable no fracture dislocation noted except for soft tissue swelling on the lateral aspect of the ankle. Vitaly wrap applied patient supplied with crutches distal neurovascular status intact post application of Vitaly wrap Patient appears nontoxic and hemodynamically stable .Decision to discharge the patient. The patient/family was given an opportunity to ask questions and understood their discharge instructions. Discharge instructions specifically included follow up provider and time frame, current and/or new medications and possible side effects, indications for sooner follow up or return to the emergency department, and the expected course of current diagnosis. Patient reports feeling better as well and giving evidence of significant clinical improvement, I believe patient is now a candidate for discharge. Patient data External records reviewed:: None Clinical information provided by:: patient Social determinants that could affect healthcare access:: none Patient has the following chronic illnesses:: None How is presenting disease/condition affected by chronic disease/condition?: no chronic disease Evaluation data The following diagnostics were reviewed and interpreted by me:: radiology exam(s) Lab and/or radiology exams considered but not ordered:: None Interpretation Summary: See results [facility] Medications / Prescriptions Medications or Prescriptions considered but not ordered:: None Medication administrations:: Medication Administration History Discontinued Medications Ketorolac Tromethamine (Ketorolac Inj 60 Mg/2 Ml Vial) 30 mg IM X1 ONE Stop: 02/03/25 23:13 Toradol IM Consultations Consultation(s) initiated? (list below): No Diagnosis Extremity Injury, Lower Differential Diagnosis: ankle sprain and strain and other (Ankle sprain, ankle fracture ankle dislocation) Most likely diagnosis given after review of the tests above:: Ankle sprain Admission Indicated Admission indicated?: not indicated Admission Request Was there a request for admission?: No Disposition Plan Disposition Plan: Discharge Discharge Attestation Discharge Attestation: The patient and all family members were given an opportunity to ask questions and understood the discharge instructions. Discharge instructions specifically effects, indications for sooner follow up or return to the emergency department, and the expected course of current diagnosis. Patient condition: Stable Discharge Plan Plan Patient Disposition: HOME (Self Care) Discharge Disposition comment: stable Prescriptions/Referrals Prescriptions/Med Rec: New ibuprofen 800 mg tablet 800 mg PO Q8H PRN (Reason: pain) Qty: 30 0RF No Action zolpidem [Ambien] 10 mg Tablet 10 mg PO QPM hydrocodone-acetaminophen 5-325 mg tablet 1 tab PO BID MDD 10 PRN (Reason: pain) Qty: 10 0RF ondansetron 4 mg tablet,disintegrating 1 tab PO TID Patient Comments: dissolve 1 tablet ON TONGUE three times a day if needed omeprazole 20 mg tablet,delayed release (DR/EC) 1 tab PO QDAY Patient Comments: take 1 tablet by mouth at bedtime buprenorphine [Butrans] 7.5 mcg/hour patch weekly 1 patch TOPICAL QWEEK Patient Comments: apply 1 patch TRANSDERMALLY EVERY 7 DAYS nrzgjgmsoxwnhyn-mmicodcpr-KX [Bromfed DM] 2-30-10 mg/5 mL syrup 5 ml PO Q4H PRN (Reason: cough/congestion) Qty: 180 0RF acetaminophen [Tylenol Extra Strength] 500 mg tablet 1,000 mg PO Q6H PRN (Reason: fever or pain) Qty: 30 0RF fluoxetine 40 mg Capsule 40 mg PO QDAY hydroxyzine HCl 50 mg Tablet 50 mg PO DAILY famotidine 20 mg Tablet 20 mg PO QDAY propranolol 20 mg Tablet 20 mg PO DAILY prazosin 2 mg Capsule 2 mg PO BID olanzapine 5 mg Tablet,Disintegrating 5 mg PO QDAY mirtazapine 7.5 mg Tablet 7.5 mg PO QDAY pregabalin [Lyrica] 50 mg Capsule 50 mg PO BID ibuprofen 800 mg tablet 800 mg PO TID PRN (Reason: pain) Qty: 30 0RF Problem List Clinical Impression: Ankle sprain and strain Patient/Caregiver Discharge Instructions Discharge Activity: activity as tolerated Education Materials: ED Ankle Sprain (Adult) Additional Instructions: Thank you for the opportunity for serving you today. You are stable for discharged . You are advised to: Follow-up with your PCP in 1 to 2 days Return to ED for worsening of symptoms Increase oral fluids Take medication as prescribed Vitaly wrap as needed Apply ice as needed for pain Apply Neosporin as needed to your abrasion of the foot Ambulate with crutches Print Language: Somali Stand Alone Forms: Holli Award Info., Patient Portal Info Letter
[2025-02-03 22:28] VITALS: PULSE 82; RESP 18; O2SAT 99
[2025-02-03 23:00] VITALS: BP 135/91; PULSE 88; RESP 16; TEMP 36.9; O2SAT 98
[2025-02-03] MEDS: KETOROLAC INJ 60 MG/2 ML VIAL 30 MG IM (23:33)
== END 2025-02-03 23:51 | disposition home or self-care (01) ==
LOC: SERX 02-04 04:01
PROVIDERS: Emergency Provider Emergency Medicine
DX: S93.401A Sprain of unspecified ligament of right ankle, initial encounter (principal); S96.911A Strain of unspecified muscle and tendon at ankle and foot level, right foot, initial encounter; X50.1XXA Overexertion from prolonged static or awkward postures, initial encounter; Y93.89 Activity, other specified
CPT/HCPCS: 73610; 96372; 99283; J1885

== ENCOUNTER → 2025-03-03 | Outpatient (CLI) | payer MEDICAID, SELFPAY ==
--- NOTE | 2025-03-03 10:52 | XR_ITS ---
Examination: Cervical spine 3 views TECHNIQUE: AP lateral coned AP odontoid cervical spine 3 views Date and time: March 03, 2020 5:11 AM Comparison July 07, 2020 INDICATIONS: Neck pain years FINDINGS: Reversal normal cervical lordosis. Early degenerative disc disease C5-C6 with mild posterior osteophyte formation No fracture Intact odontoid IMPRESSION: Early degenerative disc disease C5-C6
--- NOTE | 2025-03-03 10:54 | XR_ITS ---
Examination: Lumbar spine 2 views TECHNIQUE: AP lateral thoracolumbar spine 2 views Date and time: March 03, 2025, 10:55 AM Comparison 05/12/2021 INDICATIONS: Back pain months FINDINGS: Thoracolumbar levoscoliosis 6 degrees, lower lumbar dextroscoliosis 7 degrees No vertebral body fracture Moderate degenerative disc disease L4-L5 IMPRESSION: Scoliosis as above Moderate degenerative disc disease L4-L5
== END | disposition home or self-care (01) ==
LOC: CDIM 10:36
PROVIDERS: PCP Physician Assistant; Referring Provider Physician Assistant; Visit Provider Physician Assistant
DX: M50.322 Other cervical disc degeneration at C5-C6 level (principal); M41.86 Other forms of scoliosis, lumbar region; M41.85 Other forms of scoliosis, thoracolumbar region; M51.360 Other intervertebral disc degeneration, lumbar region with discogenic back pain only
CPT/HCPCS: 72040; 72080

== ENCOUNTER 2025-03-28 18:40 | Emergency (ER) | payer MEDICAID, SELFPAY ==
[2025-03-28 19:15] VITALS: BP 174/91; PULSE 60; RESP 19; TEMP 37.1; O2SAT 100
--- NOTE | 2025-03-28 19:37 | EDNOTE_ITS ---
<Statement entered by Isabelle Wilde MD - 03/29/25 04:49> As co-signing physician, I was present and available for consult prn. I concur with the plan and care as documented by the midlevel provider. ED Female Urogenital RME/HPI General Chief complaint: Urogenital-Female Stated complaint: Possible UTI Time Seen by Provider: 03/28/25 19:34 Arrival date/time: 03/28/25 18:40 44F with history of psych presents to ED with several days of dysuria and some flank pain. Limitations: no limitations Related Data Home Medications ?Medication ?Instructions ?Recorded ?Confirmed zolpidem 10 mg tablet (Ambien) 10 mg PO QPM 08/21/19 0 03/06/22 buprenorphine 7.5 mcg/hour weekly 1 patch topical QWEE K 03/06/22 03/06/22 transdermal patch (Butrans) omeprazole 20 mg tablet,delayed 1 tab PO QDAY 03/06/22 03/06/22 release ondansetron 4 mg disintegrating 1 tab PO TID 03/06/22 03/06/22 tablet famotidine 20 mg tablet 20 mg PO QDAY 07/28/2407/28 fluoxetine 40 mg capsule 40 mg PO QDAY 07/28/2407/28 hydroxyzine HCl 50 mg tablet 50 mg PO DAILY 07/28/24 1 09/27/23 mirtazapine 7.5 mg tablet 7.5 mg PO QDAY 07/28/2407/09 olanzapine 5 mg disintegrating 5 mg PO QDAY 07/28/24 1 09/27/23 tablet prazosin 2 mg capsule 2 mg PO BID 07/28/24 4 pregabalin 50 mg capsule (Lyrica) 50 mg PO BID 4 07/28/24 propranolol 20 mg tablet 20 mg PO DAILY 07/28/2407/09 Previous Rx's ?Medication ?Instructions ?Recorded hydrocodone 5 mg-acetaminophen 325 1 tab PO BID PRN pa in #10 tabs 07/08/21 mg tablet aczkryjpczgdnic-spzjoyhkmvvxqyn-FL 5 ml PO Q4H PRN cou gh/congestion 08/23/22 2 mg-30 mg-10 mg/5 mL oral syrup #180 mL (Bromfed DM) acetaminophen 500 mg tablet 1,000 mg (2 x 500 mg) PO Q 6H PRN 10/30/22 (Tylenol Extra Strength) fever or pain #30 tabs ibuprofen 800 mg tablet 800 mg PO TID PRN pain #30 t abs 01/25/25 ibuprofen 800 mg tablet 800 mg PO Q8H PRN pain #30 t abs 02/03/25 cefuroxime axetil 500 mg tablet 500 mg PO BID 7 days # 14 tabs 03/28/25 Allergies Allergy/AdvReac Type Severity Reaction Status Date / Time No Known Allergies Allergy Verified 03/28/25 18:44 Review of Systems Review of Systems Systems Reviewed: All systems reviewed, normal except as documented Constitutional Constitutional: Reports system reviewed and no additional complaints, except as documented, Denies fever(s) and Denies headache(s) ENT Ears, Nose, Mouth, and Throat: Denies disequilibrium and Denies headache(s) Cardiovascular Cardiovascular: Reports system reviewed and no additional complaints, except as documented, Denies chest pain and Denies dyspnea Respiratory Respiratory: Reports system reviewed and no additional complaints, except as documented, Denies cough and Denies dyspnea Gastrointestinal Gastrointestinal: Reports system reviewed and no additional complaints, except as documented, Denies abdominal pain, Denies nausea and Denies vomiting Genitourinary Genitourinary: Reports as per HPI, Reports dysuria and Reports flank pain Neurologic Neurologic: Reports system reviewed and no additional complaints, except as documented, Denies confusion, Denies disequilibrium and Denies headache(s) Psychiatric Psychiatric: Denies confusion Past Medical History Past Medical History NEUROLOGIC: Negative Neurological Disorders or Seizures CARDIAC: Negative Cardiac Disorders or Congestive Heart Failure RESPIRATORY: Negative Chronic Obstructive Pulmonary Disease (COPD), Asthma, Pneumonia or Sleep Apnea GASTROINTESTINAL: Positive Hepatitis and Gastroesophageal Reflux Disease; Negative Gastrointestinal Disorders GENITOURINARY: Negative Genitourinary Disorders, Renal Disease or Kidney Stones REPRODUCTIVE: Positive Endometriosis and Previous Pregnancies MUSCULOSKELETAL: Positive Musculoskeletal Disorders, Arthritis and Degenerative Disk Disease ENDOCRINE: Negative Endocrine Disorders, Diabetes Mellitus Type 1 or Diabetes Mellitus Type 2 HEMATOLOGIC: Negative Blood Disorders or Anemia PSYCHO/SOCIAL: Positive Recreational Drug Use, Depression, Anxiety and Post Traumatic Stress Disorder OTHER HISTORY: Positive Blood Transfusions and Chicken Pox; Negative Hospitalization, Autoimmune Disease, Shingles, Blood Transfusion Reaction, Anesthesia Reactions, MRSA or Cancer Family History FAMILY HISTORY: Positive Family Cardiac Disorders, Family Cancer and Family Surgery; Negative Family Psychiatric Problems, Family Respiratory Disorders, Family Gastrointestinal Problems or Family Anesthesia Reaction Surgical History SURGICAL: Positive Hysterectomy and Section; Negative Endocrine Surgery or Ear Surgery Social History SMOKING STATUS: Former smoker SUBSTANCE USE: does not use ED Exam General Limitations: Present no limitations General appearance: Present alert and in no apparent distress Head Head exam: Present atraumatic Eye Eye exam: Present normal appearance, PERRL and EOMI ENT ENT exam: Present normal exam, normal oropharynx and mucous membranes moist Neck Neck exam: Present normal inspection, full ROM and trachea midline Chest Chest inspection: Present normal inspection and symmetric chest wall rise Respiratory Respiratory exam: Present normal lung sounds bilaterally Cardiovascular Cardiovascular exam: Present regular rate, normal rhythm and normal heart sounds Abdominal Exam Abdominal exam: Present soft and normal bowel sounds Extremities Exam Extremities exam: Present normal inspection and full ROM Back Exam Back exam: Present normal inspection and full ROM Neurological Exam Neurological exam: Present alert, oriented X3 and CN II-XII intact Psychiatric Psychiatric exam: Present normal affect and normal mood Skin Skin exam: Present warm, dry, intact and normal color Course Quality Measures none Orders Category Date Time Status Drug Screen,Urine Stat Lab 03/28/25 19:37 Received HCG Qualitative,Urine Stat Lab 03/28/25 19:37 Completed Urinalysis, C/S if Indicated Stat Lab 03/28/25 19:37 Completed Urine Culture Stat Lab 03/28/25 19:37 Received cefuroxime axetiL [cefUROXime axetil] Med 03/28/25 20:12 Discontinued 250 mg PO X1 ONE Vital Signs Vital signs: Vital Signs Temperature 98.7 F 03/28/25 19:15 Pulse Rate 60 03/28/25 19:15 Respiratory Rate 19 03/28/25 19:15 Blood Pressure 174/91 H 03/28/25 19:15 Pulse Oximetry (%) 100 03/28/25 19:15 Oxygen Delivery Method Room Air 03/28/25 19:15 O2 at 100% on RA and WNLs Urogenital - Female MDM Narrative MDM Narrative:: 44F with history of psych presents to ED with several days of dysuria and some flank pain. Physical exam reveals well-appearing female. Patient is afebrile, calm, and alert. UA contaminated, but will treat given symptoms. Patient data External records reviewed:: [facility] previous records Clinical information provided by:: patient Social determinants that could affect healthcare access:: none Patient has the following chronic illnesses:: none How is presenting disease/condition affected by chronic disease/condition?: no chronic disease Evaluation data The following diagnostics were reviewed and interpreted by me:: lab results Lab and/or radiology exams considered but not ordered:: ordered Interpretation Summary: above Medications / Prescriptions Medications or Prescriptions considered but not ordered:: ordered Medication administrations:: Medication Administration History Discontinued Medications Cefuroxime Axetil (Cefuroxime Axetil 250 Mg Tablet) 250 mg PO X1 ONE Stop: 03/28/25 20:13 above Consultations Consultation(s) initiated? (list below): No Diagnosis Urogenital Female Differential Diagnosis: urinary tract infection, bacterial vaginosis, trichomoniasis, cervicitis, ovarian cyst, vaginitis, ruptured ovarian cyst, cyst of Bartholin's gland, cystitis and dysmenorrhea Most likely diagnosis given after review of the tests above:: UTI Admission Indicated Admission indicated?: not indicated Admission Request Was there a request for admission?: No Disposition Plan Disposition Plan: Discharge Discharge Attestation Discharge Attestation: The patient and all family members were given an opportunity to ask questions and understood the discharge instructions. Discharge instructions specifically effects, indications for sooner follow up or return to the emergency department, and the expected course of current diagnosis. Patient condition: Stable Discharge Plan Plan Patient Disposition: HOME (Self Care) Discharge Disposition comment: Stable Prescriptions/Referrals Prescriptions/Med Rec: New cefuroxime axetil 500 mg tablet 500 mg PO BID 7 Days Qty: 14 0RF No Action zolpidem [Ambien] 10 mg Tablet 10 mg PO QPM hydrocodone-acetaminophen 5-325 mg tablet 1 tab PO BID MDD 10 PRN (Reason: pain) Qty: 10 0RF ondansetron 4 mg tablet,disintegrating 1 tab PO TID Patient Comments: dissolve 1 tablet ON TONGUE three times a day if needed omeprazole 20 mg tablet,delayed release (DR/EC) 1 tab PO QDAY Patient Comments: take 1 tablet by mouth at bedtime buprenorphine [Butrans] 7.5 mcg/hour patch weekly 1 patch TOPICAL QWEEK Patient Comments: apply 1 patch TRANSDERMALLY EVERY 7 DAYS ehvsvtnjmcgiarh-gmueccuxc-VK [Bromfed DM] 2-30-10 mg/5 mL syrup 5 ml PO Q4H PRN (Reason: cough/congestion) Qty: 180 0RF ibuprofen 800 mg tablet 800 mg PO Q8H PRN (Reason: pain) Qty: 30 0RF acetaminophen [Tylenol Extra Strength] 500 mg tablet 1,000 mg PO Q6H PRN (Reason: fever or pain) Qty: 30 0RF fluoxetine 40 mg Capsule 40 mg PO QDAY hydroxyzine HCl 50 mg Tablet 50 mg PO DAILY famotidine 20 mg Tablet 20 mg PO QDAY propranolol 20 mg Tablet 20 mg PO DAILY prazosin 2 mg Capsule 2 mg PO BID olanzapine 5 mg Tablet,Disintegrating 5 mg PO QDAY mirtazapine 7.5 mg Tablet 7.5 mg PO QDAY pregabalin [Lyrica] 50 mg Capsule 50 mg PO BID ibuprofen 800 mg tablet 800 mg PO TID PRN (Reason: pain) Qty: 30 0RF Referrals: No Primary/Family,Physician [Primary Care Provider] - In 1 week Problem List Clinical Impression: Urinary tract infection Patient/Caregiver Discharge Instructions Education Materials: ED CYSTITIS Female Adult Additional Instructions: Please follow-up with PCP within 24-48 hours and return immediately if symptoms worsen. NSAIDs like ibuprofen tend to work better for this type of pain. Print Language: Welsh Stand Alone Forms: Patient Portal Info Letter PA/[employer] Supervising Physician RUPERTO/REYNALDO Supervising Physician: Dr. Wilde
[2025-03-28 19:48] LABS: Collection Type, Urine Clean Catch
[2025-03-28 20:03] LABS: Amorphous Crystals,Urine Present (Absent); Bacteria,Urine Rare; Bilirubin,Urine Negative (Negative); Blood,Urine Negative (Negative); Calcium Oxalate Crystals,Urine 3+; Clarity,Urine Clear (Clear/Hazy); Color,Urine Yellow (Lt Yel-Yel); Glucose, Urine Negative (Negative); Ketones,Urine Negative (Negative); Leukocyte Esterase,Urine Positive (Negative); Nitrite,Urine Negative (Negative); PH,Urine 6.5 (5.0-7.0); Protein,Urine 1+ (Neg - Trace); RBC,Urine 10 /hpf (0-3); Squamous Epithelial Cell,Urine 9 /hpf (0-5); Urobilinogen,Urine Negative mg/dL (0.0-1.0); WBC,Urine 23 /hpf (0-5)
[2025-03-28 20:05] LABS: HCG Qualitative,Urine Negative; Specific Gravity,Urine > 1.035 (1.001-1.035)
[2025-03-28 20:06] LABS: Culture Indicated,Urine Yes
[2025-03-28 20:21] LABS: Amphetamine/Methamp Scrn,U Negative (Negative); Barbiturate Screen,Urine Negative (Negative); Benzodiazepines Screen,Urine Negative (Negative); Benzoylecgonine Screen, Ur Negative (Negative); Fentanyl Screen,Urine Negative (Negative); Opiate Screen,Urine Positive (Negative); THC Screen,Urine Negative (Negative)
== END 2025-03-28 20:24 | disposition home or self-care (01) ==
PROVIDERS: Physician Assistant; Emergency Provider Emergency Medicine
DX: N39.0 Urinary tract infection, site not specified (principal)
CPT/HCPCS: 80307; 81001; 81025; 87086; 99283; A9270

== ENCOUNTER 2025-04-26 20:09 | Emergency (ER) | payer MEDICAID, SELFPAY ==
[2025-04-26 20:09] VITALS: BMI 27.9
[2025-04-26 20:23] VITALS: BP 132/84; PULSE 78; RESP 18; TEMP 36.3; O2SAT 97
--- NOTE | 2025-04-26 20:34 | EDNOTE_ITS ---
ED Ear RME/HPI General Chief complaint: Ear Stated complaint: right ear pain Time Seen by Provider: 04/26/25 20:33 Arrival date/time: 04/26/25 20:09 44F with history of psych presents to ED with 2 days of R ear pain. Patient denies URI symptoms. Limitations: no limitations Related Data Home Medications ?Medication ?Instructions ?Recorded ?Confirmed zolpidem 10 mg tablet (Ambien) 10 mg PO QPM 08/21/19 0 03/06/22 buprenorphine 7.5 mcg/hour weekly 1 patch topical QWEE K 03/06/22 03/06/22 transdermal patch (Butrans) omeprazole 20 mg tablet,delayed 1 tab PO QDAY 03/06/22 03/06/22 release ondansetron 4 mg disintegrating 1 tab PO TID 03/06/22 03/06/22 tablet famotidine 20 mg tablet 20 mg PO QDAY 07/28/2407/28 fluoxetine 40 mg capsule 40 mg PO QDAY 07/28/2407/28 hydroxyzine HCl 50 mg tablet 50 mg PO DAILY 07/28/24 1 09/27/23 mirtazapine 7.5 mg tablet 7.5 mg PO QDAY 07/28/2407/09 olanzapine 5 mg disintegrating 5 mg PO QDAY 07/28/24 1 09/27/23 tablet prazosin 2 mg capsule 2 mg PO BID 07/28/24 4 pregabalin 50 mg capsule (Lyrica) 50 mg PO BID 4 07/28/24 propranolol 20 mg tablet 20 mg PO DAILY 07/28/2407/09 Previous Rx's ?Medication ?Instructions ?Recorded hydrocodone 5 mg-acetaminophen 325 1 tab PO BID PRN pa in #10 tabs 07/08/21 mg tablet rtjjwdyuuknlafl-rlggnhqjbumbuwo-SS 5 ml PO Q4H PRN cou gh/congestion 08/23/22 2 mg-30 mg-10 mg/5 mL oral syrup #180 mL (Bromfed DM) acetaminophen 500 mg tablet 1,000 mg (2 x 500 mg) PO Q 6H PRN 10/30/22 (Tylenol Extra Strength) fever or pain #30 tabs ibuprofen 800 mg tablet 800 mg PO TID PRN pain #30 t abs 01/25/25 ibuprofen 800 mg tablet 800 mg PO Q8H PRN pain #30 t abs 02/03/25 outxaaov-wniffrilt-afuszqosn 3.5 4 drp otic (ear) QID 10 days #10 mL 04/26/25 mg-10,000 unit/mL-1 % ear drops,susp Allergies Allergy/AdvReac Type Severity Reaction Status Date / Time No Known Allergies Allergy Verified 03/28/25 18:44 Review of Systems Review of Systems Systems Reviewed: All systems reviewed, normal except as documented Constitutional Constitutional: Reports system reviewed and no additional complaints, except as documented, Denies fever(s) and Denies headache(s) ENT Ears, Nose, Mouth, and Throat: Reports as per HPI, Denies disequilibrium, Reports otalgia and Denies headache(s) Cardiovascular Cardiovascular: Reports system reviewed and no additional complaints, except as documented, Denies chest pain and Denies dyspnea Respiratory Respiratory: Reports system reviewed and no additional complaints, except as documented, Denies cough and Denies dyspnea Gastrointestinal Gastrointestinal: Reports system reviewed and no additional complaints, except as documented, Denies abdominal pain, Denies nausea and Denies vomiting Neurologic Neurologic: Reports system reviewed and no additional complaints, except as documented, Denies confusion, Denies disequilibrium and Denies headache(s) Psychiatric Psychiatric: Denies confusion Past Medical History Past Medical History NEUROLOGIC: Negative Neurological Disorders or Seizures CARDIAC: Negative Cardiac Disorders or Congestive Heart Failure RESPIRATORY: Negative Chronic Obstructive Pulmonary Disease (COPD), Asthma, Pneumonia or Sleep Apnea GASTROINTESTINAL: Positive Hepatitis and Gastroesophageal Reflux Disease; Negative Gastrointestinal Disorders GENITOURINARY: Negative Genitourinary Disorders, Renal Disease or Kidney Stones REPRODUCTIVE: Positive Endometriosis and Previous Pregnancies MUSCULOSKELETAL: Positive Musculoskeletal Disorders, Arthritis and Degenerative Disk Disease ENDOCRINE: Negative Endocrine Disorders, Diabetes Mellitus Type 1 or Diabetes Mellitus Type 2 HEMATOLOGIC: Negative Blood Disorders or Anemia PSYCHO/SOCIAL: Positive Recreational Drug Use, Depression, Anxiety and Post Traumatic Stress Disorder OTHER HISTORY: Positive Blood Transfusions and Chicken Pox; Negative Hospitalization, Autoimmune Disease, Shingles, Blood Transfusion Reaction, Anesthesia Reactions, MRSA or Cancer Family History FAMILY HISTORY: Positive Family Cardiac Disorders, Family Cancer and Family Surgery; Negative Family Psychiatric Problems, Family Respiratory Disorders, Family Gastrointestinal Problems or Family Anesthesia Reaction Surgical History SURGICAL: Positive Hysterectomy and Section; Negative Endocrine Surgery or Ear Surgery Social History SMOKING STATUS: Former smoker SUBSTANCE USE: does not use ED Exam General Limitations: Present no limitations General appearance: Present alert and in no apparent distress Head Head exam: Present atraumatic Eye Eye exam: Present normal appearance, PERRL and EOMI ENT ENT exam: Present normal oropharynx and mucous membranes moist Expanded ENT Exam External ear exam: Present external tenderness (R tragal) TM/Canal exam: Bilateral TM: canal tenderness Neck Neck exam: Present normal inspection, full ROM and trachea midline Chest Chest inspection: Present normal inspection and symmetric chest wall rise Respiratory Respiratory exam: Present normal lung sounds bilaterally Cardiovascular Cardiovascular exam: Present regular rate, normal rhythm and normal heart sounds Abdominal Exam Abdominal exam: Present soft and normal bowel sounds Extremities Exam Extremities exam: Present normal inspection and full ROM Back Exam Back exam: Present normal inspection and full ROM Neurological Exam Neurological exam: Present alert, oriented X3 and CN II-XII intact Psychiatric Psychiatric exam: Present normal affect and normal mood Skin Skin exam: Present warm, dry, intact and normal color Course Quality Measures none Vital Signs Vital signs: Vital Signs Temperature 97.4 F 04/26/25 20:23 Pulse Rate 78 04/26/25 20:23 Respiratory Rate 18 04/26/25 20:23 Blood Pressure 132/84 H 04/26/25 20:23 Pulse Oximetry (%) 97 04/26/25 20:23 Oxygen Delivery Method Room Air 04/26/25 20:23 O2 at 97% on RA and WNLs Ear MDM Narrative MDM Narrative:: 44F with history of psych presents to ED with 2 days of R ear pain. Patient denies URI symptoms. Physical exam reveals R tragal/canal tenderness. TM normal. Patient is afebrile, calm, and alert. Likely OE. Patient data External records reviewed:: [facility] previous records Clinical information provided by:: patient Social determinants that could affect healthcare access:: mental health Patient has the following chronic illnesses:: psych How is presenting disease/condition affected by chronic disease/condition?: uneffected by Evaluation data The following diagnostics were reviewed and interpreted by me:: other (specify) (none) Lab and/or radiology exams considered but not ordered:: not ordered Interpretation Summary: n/a Medications / Prescriptions Medications or Prescriptions considered but not ordered:: not ordered Medication administrations:: n/a Consultations Consultation(s) initiated? (list below): No Diagnosis Ear Differential Diagnosis: otitis externa, otitis media, foreign body in ear, ruptured TM and cerumen impaction Most likely diagnosis given after review of the tests above:: OE Admission Indicated Admission indicated?: not indicated Admission Request Was there a request for admission?: No Disposition Plan Disposition Plan: Discharge Discharge Attestation Discharge Attestation: The patient and all family members were given an opportunity to ask questions an d understood the discharge instructions. Discharge instructions specifically effects, indications for sooner follow up or return to the emergency department, and the expected course of current diagnosis. Patient condition: Stable Discharge Plan Plan Patient Disposition: HOME (Self Care) Discharge Disposition comment: Stable Prescriptions/Referrals Prescriptions/Med Rec: New dtqxiykf-ekuhlwaoq-CY 3.5-10,000-1 mg/mL-unit/mL-% drops,suspension 4 drp otic (ear) QID 10 Days Qty: 10 0RF No Action zolpidem [Ambien] 10 mg Tablet 10 mg PO QPM hydrocodone-acetaminophen 5-325 mg tablet 1 tab PO BID MDD 10 PRN (Reason: pain) Qty: 10 0RF ondansetron 4 mg tablet,disintegrating 1 tab PO TID Patient Comments: dissolve 1 tablet ON TONGUE three times a day if needed omeprazole 20 mg tablet,delayed release (DR/EC) 1 tab PO QDAY Patient Comments: take 1 tablet by mouth at bedtime buprenorphine [Butrans] 7.5 mcg/hour patch weekly 1 patch TOPICAL QWEEK Patient Comments: apply 1 patch TRANSDERMALLY EVERY 7 DAYS rhurclgikvtzbff-riytclkvl-SE [Bromfed DM] 2-30-10 mg/5 mL syrup 5 ml PO Q4H PRN (Reason: cough/congestion) Qty: 180 0RF ibuprofen 800 mg tablet 800 mg PO Q8H PRN (Reason: pain) Qty: 30 0RF acetaminophen [Tylenol Extra Strength] 500 mg tablet 1,000 mg PO Q6H PRN (Reason: fever or pain) Qty: 30 0RF fluoxetine 40 mg Capsule 40 mg PO QDAY hydroxyzine HCl 50 mg Tablet 50 mg PO DAILY famotidine 20 mg Tablet 20 mg PO QDAY propranolol 20 mg Tablet 20 mg PO DAILY prazosin 2 mg Capsule 2 mg PO BID olanzapine 5 mg Tablet,Disintegrating 5 mg PO QDAY mirtazapine 7.5 mg Tablet 7.5 mg PO QDAY pregabalin [Lyrica] 50 mg Capsule 50 mg PO BID ibuprofen 800 mg tablet 800 mg PO TID PRN (Reason: pain) Qty: 30 0RF Problem List Clinical Impression: Otitis externa Patient/Caregiver Discharge Instructions Education Materials: ED External Ear Infection (Adult) Additional Instructions: Please follow-up with PCP within 24-48 hours and return immediately if symptoms worsen. Keep drops in ear at least 1 min each time. Print Language: Greek Stand Alone Forms: Patient Portal Info Letter RUPERTO/REYNALDO Supervising Physician RUPERTO/REYNALDO Supervising Physician: Dr. Sharma
== END 2025-04-26 20:59 | disposition home or self-care (01) ==
LOC: SERX 20:36
PROVIDERS: Emergency Provider Emergency Medicine
DX: H60.91 Unspecified otitis externa, right ear (principal)
CPT/HCPCS: 99282